=== PATIENT | male | born 1970 | race Caucasian/White ===

== ENCOUNTER 2017-07-23 18:36 | Observation (INO) | payer OTHER ==
[2017-07-23] MEDS ORDERED: NORMAL SALINE 1000 ML 1,000 ML IV ONE (20:31)
[2017-07-23] MEDS ORDERED: ONDANSETRON HCL INJ/PF 4 MG/2 ML SDV IV ONE (20:31)
[2017-07-23] MEDS ORDERED: MORPHINE SULFATE 10 MG/ML INJ IV ONE ×2 (20:31→23:37)
--- NOTE | 2017-07-23 20:32 | ER Document Report ---
ED Medical Screen (RME) - General Chief Complaint: Abdominal Pain Stated Complaint: ABDOMINAL PAIN Time Seen by Provider: 07/23/17 20:30 Notes: Patient without any significant past medical history or history of surgeries presents with severe epigastric and right upper quadrant abdominal pain with nausea but no vomiting. TRAVEL OUTSIDE OF THE [place] IN LAST 30 DAYS: No - Related Data Allergies/Adverse Reactions: No Known Allergies Allergy (Unverified 07/23/17 18:37) Past Medical History - Social History Chew tobacco use (# tins/day): No Frequency of alcohol use: Rare Drug Abuse: None - Past Medical History Cardiac Medical History: Reports: Hx Hypertension Renal/ Medical History: Denies: Hx Peritoneal Dialysis Physical Exam - Vital signs Vitals: Temp Pulse Resp BP Pulse Ox 99.6 F 83 17 142/78 H 97 07/23/17 19:17 07/23/17 19:17 07/23/17 19:17 07/23/17 19:17 07/23/17 19:17 Course - Vital Signs Vital signs: Temp Pulse Resp BP Pulse Ox 99.6 F 83 17 142/78 H 97 07/23/17 19:17 07/23/17 19:17 07/23/17 19:17 07/23/17 19:17 07/23/17 19:17
[2017-07-23 22:36] LABS: HEMOGLOBIN 15.1 g/dL (13.5-17.0); MEAN CORPUSCULAR HEMOGLOBIN 32.2 pg (27.0-33.4); MEAN CORPUSCULAR HGB CONC 35.1 g/dL (32.0-36.0); MEAN CORPUSCULAR VOLUME 92 fl (80-97); PLATELET COUNT 224 10^3/uL (150-450); RED BLOOD COUNT 4.69 10^6/uL (4.35-5.55); RED CELL DISTRIBUTION WIDTH 12.8 % (11.5-14.0); WHITE BLOOD COUNT 20.9 10^3/uL (4.0-10.5)
[2017-07-23 22:42] LABS: APPEARANCE,URINE SLIGHTLY-CLOUDY; BILIRUBIN,URINE NEGATIVE (NEGATIVE); COLOR,URINE YELLOW; GLUCOSE, URINE NEGATIVE (NEGATIVE); KETONES,URINE NEGATIVE (NEGATIVE); LEUKOCYTE ESTERASE,URINE NEGATIVE (NEGATIVE); NITRITE,URINE NEGATIVE (NEGATIVE); PROTEIN,URINE NEGATIVE (NEGATIVE); URINE SPECIFIC GRAVITY 1.024; UROBILINOGEN,URINE NEGATIVE mg/dL (<2.0)
[2017-07-23 22:48] LABS: ALANINE AMINOTRANSFERASE 53 U/L (21-72); ALKALINE PHOSPHATASE 67 U/L (38-126); ANION GAP 12 (5-19); ASPARTATE AMINO TRANSFERASE 27 U/L (17-59); BILIRUBIN,DIRECT 0.2 mg/dL (0.0-0.4); BILIRUBIN,TOTAL 1.1 mg/dL (0.2-1.3); BLOOD UREA NITROGEN 12 mg/dL (7-20); CALCIUM 9.6 mg/dL (8.4-10.2); CARBON DIOXIDE 27 mmol/L (22-30); CHLORIDE 99 mmol/L (98-107); GLUCOSE 142 mg/dL (75-110); LIPASE 39.5 U/L (23-300); POTASSIUM 4.5 mmol/L (3.6-5.0); SODIUM 137.9 mmol/L (137-145); TOTAL PROTEIN 7.5 g/dL (6.3-8.2)
--- NOTE | 2017-07-23 22:48 | RADIOLOGY REPORT (SQ) ---
EXAM DESCRIPTION: U/S ABDOMEN LIMITED W/O DOP COMPLETED DATE/TIME: 07/23/2017 10:05 pm REASON FOR STUDY: ruq pain COMPARISON: None. TECHNIQUE: Dynamic and static grayscale images acquired of the abdomen and recorded on PACS. Additio nal selected color Doppler and spectral images recorded. LIMITATIONS: None. FINDINGS: PANCREAS: No masses. No peripancreatic edema or fluid collections. LIVER: Echotexture is coarse with increased echogenicity consistent with fatty infiltration with some areas of sparing in the hilar region. LIVER VASCULATURE: Normal directional flow of the main portal vein and hepatic veins. GALLBLADDER: No stones. Normal wall thickness. No pericholecystic fluid. ULTRASOUND-DETECTED KIDD'S SIGN: Negative. INTRAHEPATIC DUCTS AND COMMON DUCT: CBD and intrahepatic ducts normal caliber. No filling defects. INFERIOR VENA CAVA: Normal flow. AORTA: No aneurysm. RIGHT KIDNEY: Normal size. Normal echogenicity. No solid or suspicious masses. No hydronephrosis. No calcifications. PERITONEAL AND RIGHT PLEURAL SPACE: No ascites or effusions. OTHER: No other significant finding. IMPRESSION: FATTY INFILTRATION OF THE LIVER. Normal appearance of the gallbladder. . TECHNICAL DOCUMENTATION: JOB ID: [id number] [place]-[id number] 2010 [employer]- All Rights Reserved
[2017-07-23 22:57] LABS: ABSOLUTE LYMPHOCYTES# (MANUAL) 1.3 10^3/uL (0.5-4.7); ABSOLUTE MONOCYTES # (MANUAL) 2.1 10^3/uL (0.1-1.4); ABSOLUTE NEUTROPHILS# (MANUAL) 17.6 10^3/uL (1.7-8.2); BAND NEUTROPHILS % (MANUAL) 2 % (3-5); BASOPHILS % (MANUAL) 0 % (0-2); EOSINOPHILS % (MANUAL) 0 % (0-6); LYMPHOCYTES % (MANUAL) 6 % (13-45); MONOCYTES % (MANUAL) 10 % (3-13); SEGMENTED NEUTROPHILS % (MAN) 82 % (42-78); TOTAL CELLS COUNTED 100
[2017-07-23 22:58] LABS: PLATELET COMMENT ADEQUATE; RBC MORPHOLOGY COMMENT NORMO-CYTIC/CHROMIC
--- NOTE | 2017-07-23 23:39 | ER Document Report ---
ED General - General Chief Complaint: Abdominal Pain Stated Complaint: ABDOMINAL PAIN Time Seen by Provider: 07/23/17 20:30 Notes: Patient is a 46-year-old male who presents with complaints of diarrhea for 2 days followed by severe abdominal pain. Pain is mostly in the upper abdomen and right upper quadrant. Minimal to no lower abdominal pain. No blood in his stool. No difficulty urinating. Some nausea. No vomiting. No fevers. This morning he started having severe abdominal pain that continued throughout the day. He therefore came to the ER. He was seen in triage and lab work was ordered. His blood work shows he has a leukocytosis of 20,000. Ultrasound of gallbladder was also ordered and this is negative. Patient says morphine did help his pain but his pain is now starting to come back and is still is painful. Patient's only past medical history is hypertension for which takes losartan. No previous history of abdominal surgeries. No previous history of pain like this before. TRAVEL OUTSIDE OF THE [place] IN LAST 30 DAYS: No - Related Data Allergies/Adverse Reactions: No Known Allergies Allergy (Unverified 07/23/17 18:37) Past Medical History - Social History Smoking Status: Never Smoker Chew tobacco use (# tins/day): No Frequency of alcohol use: Rare Drug Abuse: None Family History: Reviewed & Not Pertinent Patient has suicidal ideation: No Patient has homicidal ideation: No - Past Medical History Cardiac Medical History: Reports: Hx Hypertension Renal/ Medical History: Denies: Hx Peritoneal Dialysis Review of Systems - Review of Systems Notes: My Normal Review Basic REVIEW OF SYSTEMS: CONSTITUTIONAL : Denies fever, chills, or sweats. Denies recent illness. EENT: Denies eye, ear, throat, or mouth pain or symptoms. Denies nasal or sinus congestion. CARDIOVASCULAR: Denies chest pain. RESPIRATORY: Denies cough, cold, or chest congestion. Denies shortness of breath, difficulty breathing, or wheezing. GASTROINTESTINAL: Abdominal pain. Diarrhea. GENITOURINARY: Denies difficulty urinating, painful urination, burning, frequency, or blood in urine. MUSCULOSKELETAL: Denies neck or back pain or joint pain or swelling. SKIN: Denies rash or skin lesions. NEUROLOGICAL: Denies altered mental status or loss of consciousness. Denies headache. Denies weakness or paralysis or loss of use of either side. Denies problems with gait or speech. Denies sensory or motor loss. ALL OTHER SYSTEMS REVIEWED AND NEGATIVE. Physical Exam - Vital signs Vitals: Temp Pulse Resp BP Pulse Ox 99.6 F 83 17 142/78 H 97 07/23/17 19:17 07/23/17 19:17 07/23/17 19:17 07/23/17 19:17 07/23/17 19:17 - Notes Notes: General Appearance: Well nourished, alert, cooperative, no acute distress, mild obvious discomfort. Vitals: reviewed, See vital signs table. Head: no swelling or tenderness to the head Eyes: PERRL, EOMI, Conjuctiva clear Mouth: No decreasd moisture Lungs: No wheezing, No rales, No rhonci, No accessory muscle use, good air exchange bilaterally. Heart: Normal rate, Regular rythm, No murmur, no rub Abdomen: Normal BS, soft, No rigidity, no pain to palpation left side of the abdomen. Some pain to palpation on the right upper quadrant and right lower quadrant. Pain is worse over the right upper quadrant., No guarding, no rebound , no abdominal masses, no organomegaly Extremities: strength 5/5 in all extremities, good pulses in all extremities, no swelling or tenderness in the extremities, no edema. Skin: warm, dry, appropriate color, no rash Neuro: speech clear, oriented x 3, normal affect, responds appropriately to questions. Course - Re-evaluation Re-evalutation: 07/24/17 02:[address] James, general surgeon, who performed in the patient's appendicitis. He said to give the patient Zosyn and he will come down and evaluate. 07/24/17 06:38 Dictation of this chart was performed using voice recognition software; therefore, there may be some unintended grammatical errors. - Vital Signs Vital signs: Temp Pulse Resp BP Pulse Ox 99.5 F 73 20 130/78 H 96 07/24/17 03:14 07/24/17 03:14 07/24/17 03:14 07/24/17 03:14 07/24/17 03:14 - Laboratory Result Diagrams: 07/23/17 22:18 07/23/17 22:18 Laboratory results interpreted by me: 07/23/17 07/23/17 22:18 22:18 WBC 20.9 H Seg Neuts % (Manual) 82 H Band Neutrophils % 2 L Lymphocytes % (Manual) 6 L Abs Neuts (Manual) 17.6 H Abs Monocytes (Manual) 2.1 H Glucose 142 H - EKG Interpretation by Me Additional EKG results interpreted by me: 07/23/17 23:38 EKG is reviewed and interpreted by me. EKG shows normal sinus rhythm with a rate of [address] segment elevation. Mild T-wave inversion in lead V5 V6. ND interval, QRS duration, QTc intervals are within normal range. No Old EKG available for comparison. Discharge - Discharge Clinical Impression: Appendicitis Qualifiers: Appendicitis type: acute appendicitis Acute appendicitis type: unspecified acute appendicitis type Qualified Code(s): K35.80 - Unspecified acute appendicitis Condition: Stable
--- NOTE | 2017-07-24 02:16 | RADIOLOGY REPORT (SQ) ---
EXAM DESCRIPTION: CT ABDOMEN AND PELVIS WITH CONTRAST CLINICAL HISTORY: leukocytosis, abdominal pain COMPARISON: None Available. TECHNIQUE: CT of the abdomen and pelvis are performed during IV bolus administration of 100 mL of Isovue-370. DLP: 1577.84 mGycm FINDINGS: Abdomen: The liver has normal size and density. No intrahepatic mass or biliary dilatation. No calcified gallstones. The spleen, pancreas, and adrenal glands are unremarkable. The kidneys have normal size and contour without evidence of solid mass or hydronephrosis. The aorta and IVC have normal caliber and position. The portal vein patent. The proximal visceral and renal arteries are patent. No free intraperitoneal air. The stomach and duodenum have normal course. Pelvis: Enlarged prostate. Small bilateral fat-containing inguinal hernias. Urinary bladder is unremarkable. No free pelvic fluid or lymphadenopathy. No dilated loops of large or small bowel. Scattered diverticula of the colon. Dilated appendix with periappendiceal inflammatory change. No abscess formation at this time. The visualized lung bases are clear. No destructive bone lesions identified. IMPRESSION: 1. Acute appendicitis. 2. Diverticulosis without evidence of diverticulitis. 3. Enlarged prostate. Report called to Dr. Stephens at 0114 hours on 07/24/2017 This exam was performed according to our departmental dose-optimization program, which includes automated exposure control, adjustment of the mA and/or kV according to patient size and/or use of iterative reconstruction technique.
[2017-07-24] MEDS ORDERED: NORMAL SALINE 1000 ML 1,000 ML IV ONE (02:18)
[2017-07-24] MEDS ORDERED: PIPERACILLIN/TAZOBACTAM 3.375 GM VIAL IV ONE (02:18)
--- NOTE | 2017-07-24 02:45 | PDOC H&P ---
History of Present Illness Admission Date/PCP: 07/24/17 Patient complains of: right lower abdominal pain History of Present Illness: KUNAL RAMSEY is a 46 year old male healthy with a 12 hours hx of right lower quadrant pain, seen in the ED. A CT scan of the A/P was done and it revealed an acute appendicitis. Past Medical History Cardiac Medical History: Reports: Hypertension Social History Smoking Status: Never Smoker Frequency of Alcohol Use: Rare Hx Recreational Drug Use: No Drugs: None Hx Prescription Drug Abuse: No Family History Family History: Reviewed & Not Pertinent Parental Family History Reviewed: No Children Family History Reviewed: No Sibling(s) Family History Reviewed.: No Medication/Allergy Allergies/Adverse Reactions: No Known Allergies Allergy (Unverified 07/23/17 18:37) Physical Exam Vital Signs: Temp Pulse Resp BP Pulse Ox 98.5 F 73 20 125/69 95 07/24/17 01:21 07/24/17 01:21 07/24/17 01:21 07/24/17 01:21 07/24/17 01:21 Intake & Output 07/22/17 07/23/17 07/24/17 06:59 06:59 06:59 Weight 99.1 kg General appearance: PRESENT: no acute distress, well-nourished Neck exam: PRESENT: full ROM Respiratory exam: PRESENT: chest wall tenderness Cardiovascular exam: PRESENT: RRR GI/Abdominal exam: PRESENT: guarding, hypoactive bowel sounds, tenderness - right lower quadrant Neurological exam: PRESENT: alert, oriented to time Psychiatric exam: PRESENT: appropriate affect Results Laboratory Results: 07/23/17 22:18 07/23/17 22:18 07/23/17 07/23/17 07/23/17 22:10 22:18 22:18 WBC 20.9 H RBC 4.69 Hgb 15.1 Hct 43.0 MCV 92 MCH 32.2 MCHC 35.1 RDW 12.8 Plt Count 224 Seg Neutrophils % Not Reportable Lymphocytes % Not Reportable Monocytes % Not Reportable Eosinophils % Not Reportable Basophils % Not Reportable Absolute Neutrophils Not Reportable Absolute Lymphocytes Not Reportable Absolute Monocytes Not Reportable Absolute Eosinophils Not Reportable Absolute Basophils Not Reportable Sodium 137.9 Potassium 4.5 Chloride 99 Carbon Dioxide 27 Anion Gap 12 BUN 12 Creatinine 0.84 Est GFR ( Amer) > 60 Est GFR (Non-Af Amer) > 60 Glucose 142 H Lactic Acid Calcium 9.6 Total Bilirubin 1.1 AST 27 ALT 53 Alkaline Phosphatase 67 Total Protein 7.5 Albumin 5.0 Lipase 39.5 Urine Color YELLOW Urine Appearance SLIGHTLY-CLOUDY Urine pH 6.0 Ur Specific [place] 1.024 Urine Protein NEGATIVE Urine Glucose (UA) NEGATIVE Urine Ketones NEGATIVE Urine Blood NEGATIVE Urine Nitrite NEGATIVE Ur Leukocyte Esterase NEGATIVE Urine WBC (Auto) 0 Urine RBC (Auto) 1 07/24/17 00:35 WBC RBC Hgb Hct MCV MCH MCHC RDW Plt Count Seg Neutrophils % Lymphocytes % Monocytes % Eosinophils % Basophils % Absolute Neutrophils Absolute Lymphocytes Absolute Monocytes Absolute Eosinophils Absolute Basophils Sodium Potassium Chloride Carbon Dioxide Anion Gap BUN Creatinine Est GFR ( Amer) Est GFR (Non-Af Amer) Glucose Lactic Acid 1.4 Calcium Total Bilirubin AST ALT Alkaline Phosphatase Total Protein Albumin Lipase Urine Color Urine Appearance Urine pH Ur Specific [place] Urine Protein Urine Glucose (UA) Urine Ketones Urine Blood Urine Nitrite Ur Leukocyte Esterase Urine WBC (Auto) Urine RBC (Auto) Impressions: Abdomen Ultrasound 07/23/17 20:31 IMPRESSION: FATTY INFILTRATION OF THE LIVER. Normal appearance of the gallbladder. . Abdomen/Pelvis CT 07/24/17 00:00 IMPRESSION: 1. Acute appendicitis. 2. Diverticulosis without evidence of diverticulitis. 3. Enlarged prostate. Report called to Dr. Stephens at 0114 hours on 07/24/2017 This exam was performed according to our departmental dose-optimization program, which includes automated exposure control, adjustment of the mA and/or kV according to patient size and/or use of iterative reconstruction technique. Assessment & Plan - Diagnosis (1) Appendicitis Qualifiers: Appendicitis type: acute appendicitis Acute appendicitis type: unspecified acute appendicitis type Qualified Code(s): K35.80 - Unspecified acute appendicitis Is this a current diagnosis for this admission?: Yes - Plan Summary Plan Summary: A/ acute appendicitis P/ IVF IV Zosyn 3.375 gr Laparoscopic appendectomy, possible open urgently this morning Procedure, risks, benefits. complications explained to the patient, he understands all of them and decides to proceed.
[2017-07-24] MEDS ORDERED: MIDAZOLAM 2 MG/2 ML INJ ONE (03:01)
[2017-07-24] MEDS ORDERED: FENTANYL CITRATE INJ/PF 100 MCG/2 ML AMPUL ONE (03:01)
[2017-07-24] MEDS ORDERED: PROPOFOL INJ 200 MG/20 ML VIAL IV ONE (03:01)
[2017-07-24] MEDS ORDERED: ACETAMINOPHEN 100 ML IV ONE (03:02)
[2017-07-24] MEDS ORDERED: BUPIVACAINE HCL 0.25% /EPINEPHRINE INJ/PF 30 ML SDV ONE (03:13)
[2017-07-24] MEDS ORDERED: MORPHINE SULFATE 10 MG/ML INJ IV PRN (04:23)
[2017-07-24] MEDS ORDERED: DIPHENHYDRAMINE HCL 50 MG/ML VIAL IV PRN (04:23)
[2017-07-24] MEDS ORDERED: PROMETHAZINE HCL INJ 25 MG/1 ML VIAL IV PRN ×2 (04:23)
[2017-07-24] MEDS ORDERED: FENTANYL CITRATE INJ/PF 100 MCG/2 ML AMPUL IV PRN ×3 (04:23)
[2017-07-24] MEDS ORDERED: SUGAMMADEX SODIUM 200 MG/2 ML SDV IV ONE ×2 (04:28→04:30)
--- NOTE | 2017-07-24 04:46 | Operative Report ---
Nonrecallable Operative Report DATE OF SURGERY: 07/24/17 PREOPERATIVE DIAGNOSIS: acute appendicitis POSTOPERATIVE DIAGNOSIS: acute purulent appendicitis OPERATION: laparoscopic appendectomy SURGEON: SERA COBB 1ST BUSINESS DEVELOPMENT CONSULTANT: SHAUN MOORE ANESTHESIA: GA - plus 20 mL 0.5% marcaine with epinephrine TISSUE REMOVED OR ALTERED: appendix COMPLICATIONS: none ESTIMATED BLOOD LOSS: neglegible INTRAOPERATIVE FINDINGS: acute, puriulent appendicitis; no evidence of perforation PROCEDURE: see dictation
[2017-07-24] MEDS ORDERED: ONDANSETRON HCL INJ/PF 4 MG/2 ML SDV IV PRN ×2 (06:25→15:00)
[2017-07-24] MEDS: MORPHINE SULFATE 10 MG/ML INJ IV PRN ×6 (07:43→20:56)
[2017-07-24] MEDS: PIPERACILLIN SODIUM/TAZOBACTAM 3.375 GM in NORMAL SALINE 100 ML IV SCH ×3 (09:25→23:20)
[2017-07-24] MEDS: FAMOTIDINE INJ/PF 20 MG/2 ML SDV IV SCH ×2 (09:26→23:20)
[2017-07-24] MEDS: ENOXAPARIN SODIUM INJ 40 MG/0.4 ML DISP.SYRIN SUBCUT SCH (09:26)
[2017-07-24] MEDS: DOCUSATE SODIUM 100 MG CAPSULE PO SCH ×2 (09:26→17:26)
[2017-07-24] MEDS ORDERED: ENOXAPARIN SODIUM INJ 40 MG/0.4 ML DISP.SYRIN SUBCUT SCH (10:00)
[2017-07-24] MEDS ORDERED: ONDANSETRON HCL INJ/PF 4 MG/2 ML SDV ONE (10:47)
[2017-07-24] MEDS ORDERED: LIDOCAINE 2% INJ-PF (20 MG/ML) 2 ML AMPUL ONE (10:47)
[2017-07-24] MEDS ORDERED: SUCCINYLCHOLINE CHLORIDE INJ 200 MG/10 ML VIAL ONE (10:47)
[2017-07-24] MEDS ORDERED: DEXAMETHASONE SOD PHOSPHATE INJ 4 MG/1 ML VIAL ONE (10:47)
[2017-07-24] MEDS ORDERED: ROCURONIUM BROMIDE INJ 50 MG/5 ML VIAL IV ONE (10:47)
--- NOTE | 2017-07-24 12:06 | EKG REPORT ---
SEVERITY:- BORDERLINE ECG - SINUS RHYTHM BORDERLINE T ABNORMALITIES, DIFFUSE LEADS : Confirmed by: Ashlee Pandey 24-Jul-2017 12:05:04
--- NOTE | 2017-07-24 15:01 | OPERATIVE REPORT E ---
Operative Report NAME: KUNAL RAMSEY : 1970 AGE: 46Y DATE OF SURGERY: 07/24/2017 ROOM: 228 PREOPERATIVE DIAGNOSIS: Acute appendicitis. POSTOPERATIVE DIAGNOSIS: Acute purulent appendicitis. PROCEDURE: Laparoscopic appendectomy. SURGEON: SERA COBB M.D. LCSW: The therapeutic recreation assistant on record. ANESTHESIA: General plus 20 mL of 0.5% Marcaine with epinephrine. COMPLICATIONS: None. FLUIDS: . DRAINS: One 10 mm flap Rommel-Olson drain. INDICATION AND FINDINGS: A 46-year-old healthy, obese male with a history of abdominal pain, nausea, came into the emergency room yesterday afternoon and CAT scan of the abdomen and pelvis was done in the maintainer operator of 07/24 and acute appendicitis was diagnosed. The patient was then scheduled to undergo urgent laparoscopic appendectomy. Procedure risks, benefits, and complications were explained to the patient. He understood all the above and decided to proceed. DESCRIPTION OF PROCEDURE: The patient was brought into the operating room. The patient was placed in a supine position. General anesthesia induced by endotracheal intubation. Abdomen shaved, prepped and draped in a usual fashion. An incision was made just above the umbilicus. A 5 mm port with 5 mm scope and Optiview adapter was inserted through the umbilical incision as the skin was with towel clips. The peritoneal cavity was entered. CO2 peritoneum was established. Under direct visualization, a 5 mm port was placed in the right upper quadrant following skin incision. The scope was then placed into the right upper quadrant 5 mm port. The 5 mm port and umbilicus was removed and replaced with a 12 mm port. The 5 mm port was inserted in the left lower quadrant of the abdomen. The patient was then placed in a Trendelenburg position with the right side elevated. The appendix was identified anterior at the base of the cecum. The appendix was then stretched upward severely inflamed and thickened. tissue was noted and the mesoappendix appeared to be inflamed as well. There was a moderate amount of purulent exudate around the appendix, but no was noted. The LigaSure was then utilized to divide the mesentery appendix at the base. When the appendix was divided at the base, a laparoscopic ZELDA stapler with blue load was fired and the appendix was divided at the base. Appendix was then extracted from the peritoneal cavity within Endobag. The CO2 pneumoperitoneum was then established. The right upper quadrant was then irrigated with 1 L of normal saline, which was fully aspirated. Using a device, the umbilical fascial defect was closed with figure of eight 0 Vicryl suture under direct visualization. The suture was left untied. Under direct visualization, a 10 mm flap Rommel-Olson drain was inserted through the umbilical port, grasped by inserting the left lower quadrant port. Port was abdominal cavity and then was placed in the right lower quadrant and pelvis, and when in good position, all instruments were removed. The was released. The ports were removed. The drain was then secured to the skin with a horizontal mattress 2-0 nylon suture. The fascial defect of the umbilicus was closed with a previously placed figure of eight 0 Vicryl suture. Skin incision was closed with running subcuticular suture and Dermabond. The patient was then extubated and transferred to the recovery room in satisfactory condition. DICTATING PHYSICIAN: SERA COBB M.D. [id number] PHY#: [id number] ID: [id number] JOB#: [id number] ACCT: [id number] cc:SERA COBB M.D. >
[2017-07-24] MEDS ORDERED: IBUPROFEN 800 MG TABLET ONE (18:17)
[2017-07-24] MEDS ORDERED: IBUPROFEN 800 MG TABLET PO ONE (19:00)
--- NOTE | 2017-07-24 19:32 | PDOC PROGRESS REPORT ---
Subjective Progress Note for:: 07/24/17 Subjective:: Is doing well post laparoscopic appendectomy. Patient wants Adame out, after it was inserted for difficulty voiding, early this morning Reason For Visit: PURULENT APPENDICITIS Physical Exam Vital Signs: Temp Pulse Resp BP Pulse Ox 97.7 F 58 L 16 134/69 H 98 07/24/17 15:18 07/24/17 15:18 07/24/17 15:18 07/24/17 15:18 07/24/17 15:18 Intake & Output 07/23/17 07/24/17 07/25/17 06:59 06:59 06:59 Intake Total 1700 240 Output Total 1270 1515 Balance 430 -1275 General appearance: PRESENT: no acute distress Respiratory exam: PRESENT: clear to auscultation won, unlabored GI/Abdominal exam: PRESENT: normal bowel sounds, soft. ABSENT: tenderness Results Impressions: Abdomen Ultrasound 07/23/17 20:31 IMPRESSION: FATTY INFILTRATION OF THE LIVER. Normal appearance of the gallbladder. . Abdomen/Pelvis CT 07/24/17 00:00 IMPRESSION: 1. Acute appendicitis. 2. Diverticulosis without evidence of diverticulitis. 3. Enlarged prostate. Report called to Dr. Stephens at 0114 hours on 07/24/2017 This exam was performed according to our departmental dose-optimization program, which includes automated exposure control, adjustment of the mA and/or kV according to patient size and/or use of iterative reconstruction technique. Assessment & Plan - Plan Summary Plan Summary: Adame discontinued, and patient has voided on his own. Discharge planning for the a.m. is anticipated
[2017-07-24] MEDS: ACETAMINOPHEN 325 MG TABLET PO PRN (23:31)
[2017-07-25] MEDS: PIPERACILLIN SODIUM/TAZOBACTAM 3.375 GM in NORMAL SALINE 100 ML IV SCH ×3 (03:20→15:54)
[2017-07-25 07:27] LABS: ABSOLUTE EOSINOPHILS # (AUTO) 0.2 10^3/uL (0.0-0.6); ABSOLUTE LYMPHOCYTES (AUTO) 1.3 10^3/uL (0.5-4.7); ABSOLUTE NEUT (AUTO) 9.5 10^3/uL (1.7-8.2); BASOPHILS % (AUTO) 0.1 % (0-2); EOSINOPHILS % (AUTO) 1.3 % (0-6); HEMATOCRIT 36.7 % (37.9-51.0); LYMPHOCYTES % (AUTO) 11.1 % (13-45); MEAN CORPUSCULAR HEMOGLOBIN 32.5 pg (27.0-33.4); MEAN CORPUSCULAR HGB CONC 35.1 g/dL (32.0-36.0); MEAN CORPUSCULAR VOLUME 93 fl (80-97); MONOCYTES % (AUTO) 8.1 % (3-13); PLATELET COUNT 177 10^3/uL (150-450); RED BLOOD COUNT 3.95 10^6/uL (4.35-5.55); RED CELL DISTRIBUTION WIDTH 13.1 % (11.5-14.0); SEGMENTED NEUTROPHILS % (AUTO) 79.4 % (42-78); TOTAL CELLS COUNTED % (AUTO) 100 %
[2017-07-25 07:28] LABS: HEMOGLOBIN 12.9 g/dL (13.5-17.0)
[2017-07-25] MEDS: ACETAMINOPHEN 325 MG TABLET PO PRN ×2 (07:43→11:31)
[2017-07-25 07:48] LABS: ANION GAP 8 (5-19); BLOOD UREA NITROGEN 13 mg/dL (7-20); CALCIUM 8.6 mg/dL (8.4-10.2); CARBON DIOXIDE 25 mmol/L (22-30); CHLORIDE 107 mmol/L (98-107); GLUCOSE 101 mg/dL (75-110); POTASSIUM 4.5 mmol/L (3.6-5.0); SODIUM 140.2 mmol/L (137-145)
[2017-07-25] MEDS: ENOXAPARIN SODIUM INJ 40 MG/0.4 ML DISP.SYRIN SUBCUT SCH (09:51)
[2017-07-25] MEDS: DOCUSATE SODIUM 100 MG CAPSULE PO SCH ×2 (09:52→17:25)
[2017-07-25] MEDS: FAMOTIDINE INJ/PF 20 MG/2 ML SDV IV SCH (09:52)
[2017-07-25] MEDS: IBUPROFEN 800 MG TABLET PO SCH ×3 (09:53→17:25)
[2017-07-25] MEDS: MORPHINE SULFATE 10 MG/ML INJ IV PRN ×2 (09:53→16:05)
[2017-07-25 13:01] VITALS: BP 140/79
--- NOTE | 2017-07-25 16:52 | PDOC DISCHARGE SUMMARY ---
General - Admit/Disc Date/PCP Admission Date/Primary Care Provider: 07/24/17 02:57 Discharge Date: 07/25/17 - Discharge Diagnosis (1) Appendicitis Is this a current diagnosis for this admission?: Yes Summary: Patient presented to ER on 07/23/[address] scan revealed acute appendicitis. Taken to O.R. at 0300 at 07/25 for lap appy. Postop course uneventful except for need for tirado catheter insertion for urinary retention postop. Is voiding well now, and tolerating diet, with good bowel fx. LENNY drain removed. Is now d/c'd home. F.U with surgeon in [place]. - Additional Information Resuscitation Status: Full Code Discharge Diet: Regular Discharge Activity: Activity As Tolerated, Balance Activity w/Rest, No Lifting Over 10 Pounds - for 2 weeks, No Lifting/Push/Pulling - > 30 lbs for 2 weeks, Slowly Increase Activity, Walk Frequently Prescriptions: Amoxicillin/Potassium Clav [Augmentin 875-125 Tablet] 1 each PO BID #10 tablet MDD 2 tabs Oxycodone HCl/Acetaminophen [Percocet 5-325 mg Tablet] 1 tab PO ASDIR PRN 5 Days #20 tab PRN Reason: Home Medications: Citalopram Hydrobromide [Citalopram HBr] 40 mg PO DAILY 07/24/17 Losartan/Hydrochlorothiazide [Losartan-Hctz 100-25 mg Tab] 1 tab PO DAILY Acetaminophen [Tylenol 325 mg Tablet] 325 mg PO Q4HP PRN tablet 07/25/17 Amoxicillin/Potassium Clav [Augmentin 875-125 Tablet] 1 each PO BID #10 tablet MDD 2 tabs 07/25/17 Docusate Sodium [Colace 100 mg Capsule] 100 mg PO BID capsule 07/25/17 Ibuprofen [Motrin 800 mg Tablet] 800 mg PO TID tablet 07/25/17 Oxycodone HCl/Acetaminophen [Percocet 5-325 mg Tablet] 1 tab PO ASDIR PRN 5 Days #20 tab 07/25/17 History of Present Illness History of Present Illness: KUNAL RAMSEY is a 46 year old male Hospital Course Hospital Course: Patient presented to ER on 07/23/[address] scan revealed acute appendicitis. Taken to O.R. at 0300 at 1/26 for lap appy. Postop course uneventful except for need for tirado catheter insertion for urinary retention postop. Is voiding well now, and tolerating diet, with good bowel fx. LENNY drain removed. Is now d/c'd home. F.U with surgeon in [place]. Physical Exam Vital Signs: Temp Pulse Resp BP Pulse Ox 98.4 F 57 L 20 140/79 H 100 07/25/17 12:53 07/25/17 12:53 07/25/17 12:53 07/25/17 12:53 07/25/17 12:53 Intake & Output 07/24/17 07/25/17 07/26/17 06:59 06:59 06:59 Intake Total 1700 1251 Output Total 1270 2170 40 Balance 430 -919 -40 Weight 121.8 kg General appearance: PRESENT: no acute distress, cooperative, well-developed, well-nourished GI/Abdominal exam: PRESENT: normal bowel sounds, soft. ABSENT: guarding, hernia , mass, rebound, tenderness Extremities exam: PRESENT: full ROM Musculoskeletal exam: PRESENT: ambulatory, full ROM Results Laboratory Results: 07/25/17 06:35 07/25/17 06:35 07/25/17 07/25/17 06:35 06:35 WBC 12.0 H RBC 3.95 L Hgb 12.9 L D Hct 36.7 L MCV 93 MCH 32.5 MCHC 35.1 RDW 13.1 Plt Count 177 Seg Neutrophils % 79.4 H Lymphocytes % 11.1 L Monocytes % 8.1 Eosinophils % 1.3 Basophils % 0.1 Absolute Neutrophils 9.5 H Absolute Lymphocytes 1.3 Absolute Monocytes 1.0 Absolute Eosinophils 0.2 Absolute Basophils 0.0 Sodium 140.2 Potassium 4.5 Chloride 107 Carbon Dioxide 25 Anion Gap 8 BUN 13 Creatinine 0.86 Est GFR ( Amer) > 60 Est GFR (Non-Af Amer) > 60 Glucose 101 Calcium 8.6 Impressions: Abdomen Ultrasound 07/23/17 20:31 IMPRESSION: FATTY INFILTRATION OF THE LIVER. Normal appearance of the gallbladder. . Abdomen/Pelvis CT 07/24/17 00:00 IMPRESSION: 1. Acute appendicitis. 2. Diverticulosis without evidence of diverticulitis. 3. Enlarged prostate. Report called to Dr. Stephens at 0114 hours on 07/24/2017 This exam was performed according to our departmental dose-optimization program, which includes automated exposure control, adjustment of the mA and/or kV according to patient size and/or use of iterative reconstruction technique. Plan Discharge Plan: Follow-up with surgeon in [facility] in 7 -10 days.
== END 2017-07-25 17:40 | disposition home or self-care (01) ==
LOC: ER 18:36 → OBSVTOIN 07-24 02:57 → EH 07-24 02:57 → INTOOBSV 07-24 02:57 → 2S 07-24 06:08
PROVIDERS: ATTEND Surgery
PROC: 0DTJ4ZZ Resection of Appendix, Percutaneous Endoscopic Approach (ICD-10-PCS; principal; 2017-07-24 04:00)
DX: K35.80 Unspecified acute appendicitis (principal); N99.89 Other postprocedural complications and disorders of genitourinary system; R33.9 Retention of urine, unspecified; I10 Essential (primary) hypertension; Z79.899 Other long term (current) drug therapy
CPT/HCPCS: 96376; 99285; 96361; 96375; 96365; 36415 ×2; 87040; 83605; 83690; 85025 ×2; 80048; 80053; 81001; 88304 ×2; 76705; 74177; 93005; 93010; 44970; J2250; J3490 ×4; J1100; J3010; J2270 ×3; J1650 ×2; J0330; J2405 ×2; J7030 ×2; J2704; S0028 ×2; J2543 ×2; J0131; 840

== ENCOUNTER 2017-07-26 13:38 | Emergency (ER) | payer OTHER ==
[2017-07-26] MEDS ORDERED: ONDANSETRON 4 MG TAB.RAPDIS PO ONE (14:42)
--- NOTE | 2017-07-26 14:45 | ER Document Report ---
ED General - General Chief Complaint: Nausea/Vomiting Stated Complaint: POST OP COMPLICATION Time Seen by Provider: 07/26/17 14:42 Mode of Arrival: Ambulatory Information source: Patient Notes: 46-year-old male who had an appendectomy there is a presents with complaints of nausea vomiting after taking pain medication. Patient had 2 episodes of diarrhea as well. He called the surgeon who requested patient be evaluated.. Patient to the stool softener yesterday Patient denies any fevers or chills there is no drainage from incision TRAVEL OUTSIDE OF THE [place] IN LAST 30 DAYS: No - HPI Onset: Just prior to arrival Onset/Duration: Sudden Quality of pain: No pain Severity: Mild Pain Level: Denies Associated symptoms: Nausea, Vomiting Exacerbated by: Other - meds Relieved by: Denies Similar symptoms previously: No Recently seen / treated by doctor: No - Related Data Allergies/Adverse Reactions: No Known Allergies Allergy (Verified 07/26/17 13:38) Past Medical History - Social History Smoking Status: Never Smoker Cigarette use (# per day): No Chew tobacco use (# tins/day): No Smoking Education Provided: No Frequency of alcohol use: None Drug Abuse: None Family History: Reviewed & Not Pertinent Patient has suicidal ideation: No Patient has homicidal ideation: No - Past Medical History Cardiac Medical History: Reports: Hx Hypertension Renal/ Medical History: Denies: Hx Peritoneal Dialysis Past Surgical History: Reports: Hx Appendectomy Review of Systems - Review of Systems Notes: I have REVIEW OF SYSTEMS: CONSTITUTIONAL : Denies fever, chills, or sweats. Denies recent illness. EENT: Denies eye, ear, throat, or mouth pain or symptoms. Denies nasal or sinus congestion or discharge. Denies throat, tongue, or mouth swelling or difficulty swallowing. CARDIOVASCULAR: Denies chest pain. Denies palpitations or racing or irregular heart beat. Denies ankle edema. RESPIRATORY: Denies cough, cold, or chest congestion. Denies shortness of breath, difficulty breathing, or wheezing. GASTROINTESTINAL: admits to intermittnet pain , nasuea ovmiting diarrhea GENITOURINARY: Denies difficulty urinating, painful urination, burning, frequency, blood in urine, or discharge. MUSCULOSKELETAL: Denies back or neck pain or stiffness. Denies joint pain or swelling. SKIN: Denies rash, lesions or sores. HEMATOLOGIC : Denies easy bruising or bleeding. LYMPHATIC: Denies swollen, enlarged glands. NEUROLOGICAL: Denies confusion or altered mental status. Denies passing out or loss of consciousness. Denies dizziness or lightheadedness. Denies headache. Denies weakness or paralysis or loss of use of either side. Denies problems with gait or speech. Denies sensory loss, numbness, or tingling. Denies seizures. PSYCHIATRIC: Denies anxiety or stress. Denies depression, suicidal ideation, or homicidal ideation. ALL OTHER SYSTEMS REVIEWED AND NEGATIVE. Dictation was performed using [employer] voice recognition software PHYSICAL EXAMINATION: GENERAL: Well-appearing, well-nourished and in no acute distress. HEAD: Atraumatic, normocephalic. EYES: Pupils equal round and reactive to light, extraocular movements intact, sclera anicteric, conjunctiva are normal. ENT: Nares patent, oropharynx clear without exudates. Moist mucous membranes. NECK: Normal range of motion, supple without lymphadenopathy LUNGS: Breath sounds clear to auscultation bilaterally and equal. No wheezes rales or rhonchi. HEART: Regular rate and rhythm without murmurs ABDOMEN: Soft, minimally tender of the laceration suprapubic region no drainage no erythema Musculoskeletal: Normal range of motion, no pitting or edema. No cyanosis. NEUROLOGICAL: Cranial nerves grossly intact. Normal speech, normal gait. Normal sensory, motor exams PSYCH: Normal mood, normal affect. SKIN: Warm, Dry, normal turgor, no rashes or lesions noted. Physical Exam - Vital signs Vitals: Temp Pulse Resp BP Pulse Ox 98.5 F 66 16 149/88 H 97 07/26/17 13:44 07/26/17 13:44 07/26/17 13:44 07/26/17 13:44 07/26/17 13:44 Course - Re-evaluation Re-evalutation: 07/26/17 14:45 Patient's presentation is extremely benign, Florafrshruthi will be given and contact Dr. Arcos who is not overly concerned about the patient he is heading into the OR and defers on seeing the patient at this time 07/26/17 15:34 Patient notes symptoms have resolved Rossana, I will write for 2 different nausea medications and he is stable for discharge After performing a Medical Screening Examination, I estimate there is LOW risk for ACUTE APPENDICITIS related post op infection, BOWEL OBSTRUCTION, ACUTE CHOLECYSTITIS, PERFORATED DIVERTICULITIS, INCARCERATED HERNIA, PANCREATITIS, TESTICULAR TORSION or PERFORATED ULCER, thus I consider the discharge disposition reasonable. Also, there is no evidence or peritonitis, sepsis, or toxicity. I have reevaluated this patient multiple times and no significant life threatening changes are noted. The patient and I have discussed the diagnosis and risks, and we agree with discharging home with close follow-up with the understanding that symptoms and presentations can change. We also discussed returning to the Emergency Department immediately if new or worsening symptoms occur. We have discussed the symptoms which are most concerning (e.g., bloody stool, fever, changing or worsening pain, intractable vomiting - standard verbal up date) that necessitate immediate return. 07/26/17 15:34 - Vital Signs Vital signs: Temp Pulse Resp BP Pulse Ox 98.5 F 66 16 149/88 H 97 07/26/17 13:44 07/26/17 13:44 07/26/17 13:44 07/26/17 13:44 07/26/17 13:44 Discharge - Discharge Clinical Impression: Nausea & vomiting Qualifiers: Vomiting type: unspecified Vomiting Intractability: non-intractable Qualified Code(s): R11.2 - Nausea with vomiting, unspecified Diarrhea Qualifiers: Diarrhea type: unspecified type Qualified Code(s): R19.7 - Diarrhea, unspecified Condition: Stable Disposition: HOME, SELF-CARE Instructions: Vomiting ([facility]), Diarrhea, Nonspecific ([facility]) Additional Instructions: Follow up with your physician tomorrow for further care or return to the ED IMMEDIATELY if symptoms worsen or new concerns occur. If you cannot afford to follow up with your primary care physician a list of low cost clinics have been provided at the end of your discharge papers as well. Prescriptions: Metoclopramide HCl [Reglan 10 mg Tablet] 1 - 2 tab PO Q6 #25 tablet Ondansetron [Zofran Odt 4 mg Tablet] 1 - 2 tab PO Q4H PRN #15 tab.rapdis PRN Reason: For Nausea/Vomiting
[2017-07-26 15:43] VITALS: BP 154/89
== END 2017-07-26 15:41 | disposition home or self-care (01) ==
LOC: ER 13:38
DX: R11.2 Nausea with vomiting, unspecified (principal); R19.7 Diarrhea, unspecified; I10 Essential (primary) hypertension; Z98.890 Other specified postprocedural states; Z90.49 Acquired absence of other specified parts of digestive tract
CPT/HCPCS: 99283; S0119